=== PATIENT | male | born 1975 | race Hispanic/Latino ===

== ENCOUNTER 2025-04-25 21:11 | Emergency (ER) | payer OTHER, SELFPAY ==
[2025-04-25] VITALS (8 sets, daily range): BP systolic 138–178; BP diastolic 65–104; BMI 45.4
[2025-04-25 22:13] LABS: Hematocrit 42.7 % (39.0-52.0); Hemoglobin 14.0 g/dL (13.0-18.0); Mean Corp Hgb Conc. 32.8 g/dL (33.0-37.0); Mean Corpuscular Volume 78.2 fL (80.0-94.0); Nucleated Red Blood Cells % 0 % (-); Platelet Count 225 10^3/uL (130-400); Red Cell Dist. Width 13.4 % (11.5-14.5)
[2025-04-25 22:27] LABS: ALT (SGPT) 28 U/L (0-50); AST (SGOT) 26 U/L (17-59); Albumin 3.9 g/dl (3.5-5.0); Alkaline Phosphatase 90 U/L (38-126); Blood Urea Nitrogen 16 mg/dl (9-20); Calcium 9.3 mg/dl (8.4-10.2); Carbon Dioxide 30 mmol/L (22-30); Chloride 104 mmol/L (98-107); Estimated Creatinine Clearance 77 ml/min; Glucose 128 mg/dl (70-99); Potassium 4.2 mmol/L (3.5-5.1); Sodium 135 mmol/L (135-145); Total Protein 7.1 g/dl (6.3-8.2); eGFR 57.43
[2025-04-25 22:40] LABS: Troponin I < 0.012 ng/ml
[2025-04-26] VITALS (11 sets, daily range): BP systolic 143–157; BP diastolic 71–96
[2025-04-26] MEDS: ZESTRIL 5 MG PO (00:54)
--- NOTE | 2025-04-26 02:39 | ED.GENMED ---
History of Present Illness
General
Chief Complaint: Dizziness
Source: patient and spouse
Exam Limitations: none
Time Seen by Provider: 04/25/25 23:00
Nursing documentation reviewed up to this point in time: agreed with
History of Present Illness
History of Present Illness:
Note:
CHIEF COMPLAINT(S)
Headaches and dizziness.
HISTORY OF PRESENT ILLNESS
The patient is a 49-year-old male who presented with complaints of headaches and dizziness that began this morning. He describes his headaches as tension-like and believes they may be related to elevated blood pressure. Recently, he has been
attending physical therapy sessions for an elbow injury sustained at work, which is suspected to be due to tendon involvement. Blood pressure readings taken at the therapy sessions have been high, with the most notable measurement being
approximately 180/110 mmHg. This has been concerning enough that certain procedures, potentially corticosteroid injections, were deferred due to the risk of exacerbating hypertension.
The patient has not seen his primary care physician in three years and does not have a current prescription for antihypertensive medications. He denies any recent blurry vision, paralysis, numbness, or chest pain, although he has experienced nausea
in the mornings and occasional fatigue, which he attributes to being overweight. He denies any alcohol or excessive drug use and has no history of smoking.
SOCIAL DETERMINANTS AFFECTING HEALTH
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 He noted high blood pressure runs in his family.
ALLERGIES
Penicillin.
FAMILY HISTORY
There is a family history of hypertension.
REVIEW OF SYSTEMS
- Neurological: Headaches, dizziness, no blurry vision, no paralysis, no numbness.
- Gastrointestinal: Morning nausea, no chest pain.
- Musculoskeletal: Elbow pain associated with tendon issues, occasional fatigue attributed to overweight.
PHYSICAL EXAM
General: Alert, no acute distress.
Skin: Warm, dry.
Head: Normocephalic, atraumatic.
Neck: Supple, trachea midline.
Eyes, Ears, Nose, Mouth and Throat: Oral mucosa moist.
Cardiovascular: Normal peripheral perfusion, No edema.
Respiratory: Respirations are non-labored.
Gastrointestinal: Abdomen nondistended.
Back: Normal range of motion, Normal alignment.
Musculoskeletal: Normal ROM, normal strength.
Neurological: Alert and oriented to person, place, time, and situation, No focal neurological deficit observed.
Psychiatric: Cooperative, appropriate mood & affect.
PROBLEM LIST
Acute:
- Headaches
- Hypertension
- Dizziness
- Nausea
Chronic:
- Obesity (contributing to fatigue)
PLAN
- Initiate cardiac laboratory evaluations.
- Perform a computed tomography scan of the head.
- Administer a temporary dose of antihypertensive medication.
- Monitor blood pressure closely.
- Consider a follow-up appointment with a primary care physician for ongoing management of hypertension.
DIFFERENTIAL DIAGNOSIS
The Differential Diagnosis includes, in no particular order and is not limited to:
- Hypertension
- Tension headaches
- Migraine
- Vestibular dysfunction
- Secondary hypertension due to weight
- Anxiety or stress-related symptoms
- Orthostatic hypotension
- Chronic pain syndrome
- Dehydration
- Medication side effects
Disposition:
SUMMARY OF ENCOUNTER
The patient is a 49-year-old male who presented to the emergency department with complaints of headache and dizziness that began this morning. He has not seen a primary care physician in three years but has a history of hypertension. Upon
evaluation, his blood pressure was determined to be elevated. Management included administration of lisinopril, which helped reduce his blood pressure, resolving his symptoms. A computed tomography (CT) scan was performed, and laboratory tests were
conducted, both yielding normal results.
DISPOSITION
Discharge.
PLAN
- Initiate lisinopril for hypertension management.
- Ensure patient has a follow-up appointment with his primary care physician in three weeks for ongoing monitoring of blood pressure and adjustment of antihypertensive therapy as needed.
INDEPENDENT REVIEW OF LABS AND INTERPRETATION OF TESTS
- My independent review indicates normal laboratory results.
- My independent computed tomography scan interpretation shows no acute intracranial abnormalities.
MEDICATION RECONCILIATION
- Lisinopril was administered during the visit to address hypertension.
MEDICAL DECISION MAKING
- Number and Complexity of Problems Addressed: Chronic conditions affecting care include hypertension and obesity. Differential diagnosis considered: hypertension, tension headaches, migra�ne, vestibular dysfunction, secondary hypertension due to
weight, anxiety or stress-related symptoms, orthostatic hypotension, chronic pain syndrome, dehydration, medication side effects.
- Data:
Category 1: CT scan and lab tests reviewed showing normal findings.
Category 2: [Not applicable]
-Risk:
Consideration of Admission/Observation: Escalation of care including admission/observation was considered given the complexity and risk of the patient�s presenting complaint. However, ultimately I feel the patient is safe for outpatient management
with close follow-up. Reasoning: Work-up reassuring, does not reveal any acute life/organ-threatening processes, patients symptoms well controlled upon reevaluation, reexamination is reassuring, vitals are stable, patient agreeable with discharge,
reliable for follow-up.
DIAGNOSIS
- Hypertension (I10)
- Headache (R51)
- Dizziness (R42)
Phy Exam
Physical Exam
Physical Exam:
.
Course
Orders/Labs/Results
Orders:
Orders
04/25/25 21:12
EKG [Electrocardiogram (*1)] Urgent
Reason for Study: Vertigo / Dizzy
EKG- Treatment ONCE
04/25/25 22:02
Complete Blood Count/With Diff Urgent
Comprehensive Metabolic Panel Urgent
Troponin I Urgent
04/25/25 23:32
CT Head W/o Iv Contrast Urgent
Comment:
Reason For Exam: dizziness, htn
04/26/25 00:39
Lisinopril [Zestril] 5 mg PO NOW STA
Abnormal Lab Results
04/25/25
22:02
MCV 78.2 L fL
(80.0-94.0)
MCH 25.6 L pg
(27.0-31.0)
MCHC 32.8 L g/dL
(33.0-37.0)
Absolute Monos (auto) 0.8 H 10^3/uL
(0.1-0.6)
Creatinine 1.5 H mg/dL
(0.7-1.3)
Glucose 128 H mg/dl
(70-99)
04/25/25 22:02
04/25/25 22:02
Vital Signs
Initial and Last Documented VS:
Initial Vital Signs
Temp Pulse Resp BP Pulse Ox
97.2 F 90 22 178/104 98
04/25/25 21:20 04/25/25 21:20 04/25/25 21:20 04/25/25 21:20 04/25/25 21:20
Last Documented Vital Signs
Temp Pulse Resp BP Pulse Ox
97.2 F 78 13 143/71 96
04/25/25 21:24 04/26/25 02:30 04/26/25 02:30 04/26/25 02:30 04/26/25 02:40
*Radiology
Radiology exam reviewed: radiology read reviewed
*Pulse Oximetry
SaO2: 96
Oxygen Mode of Delivery: Room air
Patient hypoxic: no
*EKG
Interpreted by ED Provider?: Yes
EKG Intrepretation Date: 04/26/25
Interpretation: abnormal
Heart Rate: 75
Rate: normal
Rhythm: sinus
[place]: normal axis
Interval: normal interval
QRS Pattern: normal QRS
Ischemia: non-specific ST changes
*Critical Care Note
Total Time (30-74mins, 75-104mins- exclusive of procedures): Not Applicable
Update Note
Update Note:
NAME: LEDA BERMAN
DATE OF EXAM: 04/25/2025
Patient No: [id number]
Physician: WAGNER^Salvatore
Date of : 1975
Past Medical History (entered by Technologist):
Reason For Exam (entered by Technologist):
Other Notes (entered by Technologist): Pt c/o dizziness (worse with position changes) and nausea since last night. Reports physical therapy has been telling his his BP has been high recently.
Additional Information (per [facility]):
NONCONTRAST HEAD CT
IMPRESSION
No evidence of acute intracranial abnormality. No hemorrhage or mass. Ventricles, sulci, Cha-White matter, and bones are unremarkable. Sinuses are unremarkable.
No CT criteria for an acute ischemic event, however CT has a diminished sensitivity for hyperacute stroke.
Case finalized on 04/26/25 00:07 EST
Ernesto Steele M.D.
This report has been electronically signed and verified by the Radiologist whose name is printed above.
ED Attending Note
-
Portions of this chart may have been created with voice recognition software.� Occasional wrong word or��sound alike� substitutions may have occurred due to the inherent limitations of voice recognition software.
Discharge Plan
Departure
Patient Disposition: Home (Routine Discharge)
Date of Disposition: 04/26/25
Time of Disposition: 02:44
Patient with high blood pressure during this ER visit?: Yes
Condition: Good
Discharge Problem:
High blood pressure, Dizziness
Instructions: Dizziness, BLOOD PRESSURE
Prescriptions:
New
lisinopril 5 mg tablet
5 mg PO DAILY 30 Days Qty: 30 0RF
Referrals:
Thanh Wilkinson CRNP [Family Provider, General]
Activity Restrictions/Additional Instructions:
Thank You for choosing [facility].
It was a pleasure meeting you and taking part in your care. We hope for your continued healing and wellness.
Please read discharge instructions in their entirety. However, they are for general education and may not describe your exact diagnosis at discharge. Information on your ER visit and medical conditions were discussed with you along with appropriate
follow up information...
If indicated, please take your medications as instructed and indicated on discharge paperwork.
Please schedule a follow up appointment as directed. Call to schedule an appointment
Please return to the emergency department with ANY change in, persisting, or worsening of symptoms. If any of your symptoms do not improve, or persist, or become more severe within 6-12 hours, please return to the emergency department for further
care.
Please return to the emergency department if you develop a headache, neck pain/stiffness, fever greater than 100.4F, chest pain, shortness of breath, persistent nausea, vomiting, slurred speech, difficulty walking, numbness/tingling, weakness, signs
of infection or any other symptoms that are worrisome to you.
If you have any questions or concerns please do not hesitate to call the Hospital at .
Interventions
Interventions:
*Risk Screen - Suicide Last Done: 04/25/25 21:20
*General Assessment Last Done: 04/25/25 21:20
*Neglect/Abuse Screening Last Done: 04/25/25 21:20
*ED COVID-19 Vaccine History Last Done: 04/25/25 21:20
*ED Influenza Vaccine History Last Done: 04/25/25 21:20
[facility] Fall Risk Assessment Tool Last Done: 04/25/25 21:47
*Nursing Disposition Last Done: 04/26/25 03:00
ED- Neurological Assessment Last Done: 04/25/25 21:48
ED Swallowing Screen Last Done: 04/25/25 21:48
Discharge Date and Time
Discharge Date/Time: 04/26/25 03:02
Print Language: GUINEAN
== END 2025-04-26 03:02 | disposition home or self-care (01) ==
LOC: EMR 21:11
PROVIDERS: Emergency Medicine; EMERGENCY PHYSICIAN Student in an Organized Health Care Education/Training Program; FAMILY PHYSICIAN Family Medicine
DX: I10 Essential (primary) hypertension (principal); R42 Dizziness and giddiness; E66.9 Obesity, unspecified; Z68.42 Body mass index [BMI] 45.0-49.9, adult; Z88.0 Allergy status to penicillin; Z82.49 Family history of ischemic heart disease and other diseases of the circulatory system
CPT/HCPCS: 99284; 70450; 80053; 84484; 85025; 93005